=== PATIENT | male | born 1995 | race Caucasian/White ===

== ENCOUNTER 2017-09-19 17:27 | Emergency (ER) | payer BC ==
[~2017-09-19] VITALS: Ht 177.8 cm; Wt 90.9 kg
[2017-09-19 17:38] VITALS: Ht 177.8 cm; Wt 90.9 kg
[2017-09-19] MEDS ORDERED: ONDANSETRON 4MG OD TAB PO ONE (17:45)
[2017-09-19 19:04] LABS: BUN/CREATININE RATIO 8.3 (10-20); CALCIUM 8.5 mg/dl (8.5-10.1); CREATININE 1.06 mg/dl (0.60-1.40); POTASSIUM 4.2 mmol/L (3.5-5.1)
[2017-09-19 19:13] VITALS: BP 129/60; PULSE 77; O2SAT 96
--- NOTE | 2017-09-19 19:28 | EMERGENCY ROOM VISIT NOTE ---
History First contact with patient: 17:31 Chief Complaint: ALCOHOL OVERDOSE Stated Complaint: ALCOHOL Nursing Triage Summary: Pt brought BLS from football game after vomitting and blowing a 220 for police. Pt has no complaints, family here at ED, answering questions appropriately, pt denies syncope or falls. Family concerned that pt was not acting right and was stubbling. History of Present Illness The patient is a 22 year old male who presents to the Emergency Room via BLS for evaluation of alcohol intoxication. The patient's family is at bedside. Per family members, the patient left the football game at half time and began drinking downtown. When they met up with the patient, he seemed very intoxicated and was having trouble speaking and standing. He vomited once in a trash can. The patient denies any complaints at this time. He states he is no longer feeling nauseous. He denies any trauma. He denies any drug use. He does admit to drinking both liquor and beer starting early this morning. Review of Systems A complete 10 point review of systems was reviewed with the patient with pertinent positives and negatives as per history of present illness. All else were negative. Social History Smoking Status: Never Smoker Current/Historical Medications No Active Prescriptions or Reported Meds Physical Exam Vital Signs Date Time Temp Pulse Resp B/P (MAP) Pulse Ox O2 Delivery O2 Flow Rate FiO2 09/19/17 19:13 77 10 129/60 96 Room Air 09/19/17 18:16 101 10 119/63 95 Room Air 09/19/17 17:57 93 09/19/17 17:38 90 20 148/90 99 Room Air Physical Exam VITALS: Vitals are noted on the nurse's note and reviewed by myself. Vital signs stable. GENERAL: This is a 22-year-old male, lying on his side in bed, appears to be visibly intoxicated, smells of ETOH. SKIN: The skin was without erythema, edema, or bruising. HEAD: Normocephalic atraumatic. EARS: External auditory canals clear. No hemotympanum. EYES: Pupils equal round and reactive to light and accommodation. NOSE: No deformities noted. MOUTH: No loose or chipped teeth. NECK: No cervical spine tenderness. HEART: Regular rate and rhythm without murmurs gallops or rubs. LUNGS: Clear to auscultation bilaterally without wheezes, rales or rhonchi. ABDOMEN: Soft, nontender. MUSCULOSKELETAL: Full range of motion throughout. Strength intact throughout. NEURO: Patient was alert and oriented to person place and time. Speech slurred. Gross sensation intact. Patient cooperative with examiner. Medical Decision & Procedures Laboratory Results 09/19/17 18:22 Test 09/19/17 18:22 Anion Gap 7.0 mmol/L (3-11) Est Creatinine Clear Calc Drug Dose 122.9 ml/min Estimated GFR () 114.1 Estimated GFR (Non- 98.4 BUN/Creatinine Ratio 8.3 (10-20) Calcium Level 8.5 mg/dl (8.5-10.1) Ethyl Alcohol mg/dL 246.0 mg/dl (0-3) Medications Administered Medications (Trade) Dose Ordered Sig/Phong Route Start Time Stop Time Status Last Admin Dose Admin Ondansetron HCl (Zofran Odt) 4 mg ONE ONCE PO 09/19/17 17:45 09/19/17 17:46 DC 09/19/17 17:48 4 MG Medical Decision Differential diagnosis includes alcohol intoxication, drug use, infection, hypoglycemia, head trauma, among others. The patient is a 22-year-old male who presents today for evaluation of probable alcohol intoxication. The patient does admit to drinking several different kinds of alcohol today. His mother is concerned because she does not believe that alcohol could make him act like this. She is concerned because she states that he was having difficulty walking and speaking earlier. On my evaluation, the patient answers all questions appropriately and is visibly intoxicated. He admits to drinking too much today. Labs revealed an alcohol of 246. Kidney function was found to be within normal limits. Labs were otherwise unremarkable. There is no evidence of head trauma or infection on exam. The patient was given Zofran here and was able to keep down oral fluids with no difficulties. I did have a lengthy discussion with the patient and family. His mother is very concerned and feels that there may be something else causing the patient to act inappropriately. On exam, his behavior is consistent with alcohol intoxication. I did offer further workup including CT of the head, but the family declined. There is no evidence of trauma and no history of trauma. The patient did begin to act slightly more appropriately and answered all questions correctly on repeat exam after several hours. The family was comfortable taking the patient home to rest. He was advised not to drink any more alcohol tonight. He will follow-up with his primary care provider as needed. He verbalized understanding of my assessment and treatment plan and the patient was discharged home in good condition. Medication Reconcilliation Current Medication List: was personally reviewed by me Blood Pressure Screening Patient's blood pressure: Normal blood pressure Impression Primary Impression: Alcohol intoxication Departure Information Dispostion Home / Self-Care Condition GOOD Prescriptions No Active Prescriptions or Reported Meds Referrals No Doctor, Assigned (PCP) Patient Instructions [facility] Additional Instructions Do not drink anymore alcohol today. Rest and drink plenty of fluids. Follow-up with your primary care provider as needed for any further concerns.
== END 2017-09-19 17:32 | disposition home or self-care (01) ==
LOC: C.EDB 17:31
DX: F10.129 Alcohol abuse with intoxication, unspecified (principal); Y90.8 Blood alcohol level of 240 mg/100 ml or more